=== PATIENT | female | born 1945 | race Caucasian/White ===

== ENCOUNTER → 2016-08-03 | Outpatient (CLI) | payer OTHER, BC | LOC: FIMAGING 07:41 | PROVIDERS: ATTEND Internal Medicine | DX: Z12.31 Encounter for screening mammogram for malignant neoplasm of breast (principal); Z85.3 Personal history of malignant neoplasm of breast; Z90.12 Acquired absence of left breast and nipple | CPT/HCPCS: G0202-52 ==

== ENCOUNTER 2016-08-07 12:44 | Inpatient (IN) | payer OTHER, BC ==
[2016-08-07] MEDS ORDERED: NS 1,000 ML IV ONE (13:15)
[2016-08-07] MEDS ORDERED: ONDANSETRON 4 MG/2 ML VIAL IVP ONE (13:15)
[2016-08-07] MEDS ORDERED: fentaNYL 100 MCG/2 ML INJ IVP ONE (13:15)
--- NOTE | 2016-08-07 13:18 | EDPHY ---
H & P Time Seen by Provider: 08/07/16 13:02 HPI/ROS: CHIEF COMPLAINT: Abdominal pain nausea and vomiting HISTORY OF PRESENT ILLNESS: Patient is had several previous surgeries including peritonitis in 1969 and hernia surgery in 2001. She presents today with nausea and vomiting and abdominal pain for the past 3 days. Mostly upper abdominal pain which is worse with trying to eat or drink anything. No hematemesis or coffee-ground emesis. No diarrhea. Minimal stool in feels constipated. Symptoms are severe but not associated with fever or chills. REVIEW OF SYSTEMS: Eye: no change in vision ENT: no sore throat Cardiac: no chest pain or syncope Pulmonary: no cough or SOB Abdomen: HPI Musculoskeletal: Sacral pain after sitting down hard last week on her but when she tripped over her legs. Skin: no rash Neuro: no headache Constitutional: no fever : no urinary symptoms A comprehensive 10 point review of systems is otherwise negative aside from elements mentioned in the history of present illness. PAST MEDICAL HISTORY: Peritonitis with exploratory laparotomy in 1969, hernia surgery 2001, breast cancer on the left side, diabetes Social history: , former smoker General Appearance: Alert and conversant, cooperative. Eyes: No scleral icterus. ENT, Mouth: Dry mucous membranes. Respiratory: Normal respiratory effort, breath sounds equal, lungs are clear to auscultation. Cardiovascular: Regular rate and rhythm. Gastrointestinal: Right upper quadrant abdominal tenderness. Bowel sounds present. Neurological: Alert and oriented x3. Normally conversant. Face symmetric, normal movement and sensation in all extremities. Skin: Warm and dry, no rashes. Musculoskeletal: No peripheral edema and no joint swelling. Psychiatric: Not agitated. Emergency Department course/MDM: Concern for bowel obstruction given vomiting and multiple previous abdominal surgeries. There is also a 3-year-old a 6-year-old with she when out to lunch with on Sunday and they had gastrointestinal symptoms. She has tenderness over her right upper quadrant does not know if she has had a cholecystectomy in the past with her previous surgeries. CT without IV contrast as she has an allergy, fentanyl 100 mcg IV and Zofran 4 mg IV, normal saline 1 L for dehydration and vomiting. Gallbladder ultrasound. 1403: Ultrasound common bile duct 10 mm otherwise normal, [place]. 1419: CT shows abdominal wall hernia with bowel obstruction, [place] . Discussed with Db, requests an NG-tube admission to surgical service. Will see in the emergency department. Smoking Status: Former smoker Constitutional: Initial Vital Signs Temperature (C) 37.1 C 08/07/16 12:45 Heart Rate 110 H 08/07/16 12:45 Respiratory Rate 18 08/07/16 12:45 Blood Pressure 113/90 H 08/07/16 12:45 O2 Sat (%) 95 08/07/16 12:45 O2 Delivery Mode Room Air O2 (L/minute) 2 Allergies/Adverse Reactions: Iodine and Iodide Containing Produc Allergy (Verified 08/07/16 14:59) IV CONTRAST Allergy (Uncoded 06/10/12 17:02) Other-Enter Comments Home Medications: Medication Instructions Recorded Brimonidine/Timolol [Combigan (*)] 1 drop EACHEYE BID 08/07/16 Brinzolamide [Azopt] 1 drop EACHEYE BID 08/07/16 Dicloxacillin Sodium [Dynapen 500 500 mg PO BID 08/07/16 MG (*)] Gabapentin [Neurontin 300 MG (*)] 900 mg PO TID 08/07/16 Herbals/Supplements -Info Only 1 ea PO DAILY 08/07/16 Letrozole [Femara 2.5 mg (*)] 2.5 mg PO DAILY 08/07/16 Montelukast Sodium [Singulair 10 10 mg PO DAILY@18 08/07/16 mg (*)] Simvastatin [Zocor] 40 mg PO HS 08/07/16 metFORMIN HCL [Metformin HCl] 1,000 mg PO BID 08/07/16 Medical Decision Making - Diagnostics Imaging Results: Imaging Impressions Abdomen/Pelvis CT 08/07/16 13:15 Impression: 1. High-grade small bowel obstruction secondary to left lower quadrant anterior abdominal wall hernia adjacent to previous mesh repair with small bowel loops extending through the hernia defect and inflammatory changes in the surrounding subcutaneous and anterior mesenteric fat. Small bowel Transition point is in the abdominal wall hernia. No pneumoperitoneum or drainable abscess. 2. Second infraumbilical abdominal wall hernia with small bowel also extending through this region. 3. Limited due to lack of intravenous and oral contrast. 4. Recommend surgical consult. Attention: This CT examination is specifically designed to evaluate patients who are clinically suspected of having acute obstructive uropathy. This examination does not use radiographic contrast, and as such, provides only a limited evaluation of the abdomen, pelvis and retroperitoneum. If there is further clinical suspicion for pathological conditions other than obstructive uropathy, a complete CT evaluation of the abdomen and pelvis utilizing intravenous, oral, and rectal contrast should be considered. Findings and recommendations discussed with Emergency Department physician, Davy Arana, at 1420 hours, 08/07/2016. Final report concurs with initial preliminary interpretation. Findings also discussed with Dr. Raffaele Ace at 1500 hours. Abdomen Ultrasound 08/07/16 13:16 Impression: 1. Prior cholecystectomy. 2. Common bile duct 10 mm which may be postsurgical. Please correlate with bilirubin. 3. No hepatomegaly or ascites. 4. No right hydronephrosis. 5. No evidence of aortic aneurysm. Findings and recommendations discussed with Emergency Department physician, Davy Arana at 1407 hours 08/07/2016. Final report concurs with initial preliminary interpretation. Differential Diagnosis: Differential considered including but not limited to bowel obstruction, cholecystitis, intestinal perforation, viral gastroenteritis Consult/Admit Bed Type: [place] [id number] - Data Points Laboratory Results: Laboratory Results 08/07/16 13:07 08/07/16 13:07 08/07/16 08/07/16 13:07 13:07 WBC 14.35 10^3/uL H 10^3/uL (3.80-9.50) RBC 5.22 10^6/uL 10^6/uL (4.18-5.33) Hgb 15.8 g/dL g/dL (12.6-16.3) Hct 46.5 % % (38.0-47.0) MCV 89.1 fL fL (81.5-99.8) MCH 30.3 pg pg (27.9-34.1) MCHC 34.0 g/dL g/dL (32.4-36.7) RDW 13.7 % % (11.5-15.2) Plt Count 428 10^3/uL H 10^3/uL (150-400) MPV 8.7 fL fL (8.7-11.7) Neut % (Auto) 76.5 % H % (39.3-74.2) Lymph % (Auto) 13.7 % L % (15.0-45.0) [place] % (Auto) 8.4 % % (4.5-13.0) Eos % (Auto) 0.6 % % (0.6-7.6) Baso % (Auto) 0.3 % % (0.3-1.7) Nucleat RBC Rel Count 0.0 % % (0.0-0.2) Absolute Neuts (auto) 10.98 10^3/uL H 10^3/uL (1.70-6.50) Absolute Lymphs (auto) 1.97 10^3/uL 10^3/uL (1.00-3.00) Absolute Monos (auto) 1.20 10^3/uL H 10^3/uL (0.30-0.80) Absolute Eos (auto) 0.09 10^3/uL 10^3/uL (0.03-0.40) Absolute Basos (auto) 0.04 10^3/uL 10^3/uL (0.02-0.10) Absolute Nucleated RBC 0.00 10^3/uL 10^3/uL (0-0.01) Immature Gran % 0.5 % % (0.0-1.1) Immature Gran # 0.07 10^3/uL 10^3/uL (0.00-0.10) Sodium 135 mEq/L mEq/L (134-144) Potassium 4.9 mEq/L mEq/L (3.5-5.2) Chloride 99 mEq/L mEq/L (97-110) Carbon Dioxide 20 mEq/l L mEq/l (22-31) Anion Gap 16 mEq/L mEq/L (8-16) BUN 22 mg/dL mg/dL (7-23) Creatinine 0.9 mg/dL mg/dL (0.6-1.0) Estimated GFR > 60 Glucose 156 mg/dL H mg/dL (70-100) Calcium 10.5 mg/dL H mg/dL (8.5-10.4) Total Bilirubin 1.3 mg/dL mg/dL (0.1-1.4) Conjugated Bilirubin 0.5 mg/dL mg/dL (0.0-0.5) Unconjugated Bilirubin 0.8 mg/dL mg/dL (0.0-1.1) AST 44 IU/L IU/L (14-46) ALT 39 IU/L IU/L (9-52) Alkaline Phosphatase 65 IU/L IU/L (38-126) Total Protein 8.2 g/dL g/dL (6.3-8.2) Albumin 4.7 g/dL g/dL (3.5-5.0) Lipase 69.0 IU/L IU/L (23-300) Medications Given: Discontinued Medications Fentanyl (Sublimaze) 100 mcg IVP EDNOW ONE Stop: 08/07/16 13:16 Last Admin: 08/07/16 13:39 Dose: 100 mcg Sodium Chloride (Ns) 1,000 mls @ 0 mls/hr IV ONCE ONE; Wide Open PRN Reason: Protocol Stop: 08/07/16 13:16 Last Admin: 08/07/16 13:39 Dose: 1,000 mls Ondansetron HCl (Zofran) 4 mg IVP EDNOW ONE Stop: 08/07/16 13:16 Last Admin: 08/07/16 13:36 Dose: 4 mg Departure - Departure Disposition: [facility] Inpatient Acute Clinical Impression: Abdominal wall hernia Bowel obstruction Qualifiers: Intestinal obstruction type: unspecified Qualified Code(s): K56.60 - Unspecified intestinal obstruction Condition: Good
[2016-08-07 13:25] LABS: % IMMATURE GRANULYOCYTES 0.5 % (0.0-1.1); ABSOLUTE IMMATURE GRANULOCYTES 0.07 10^3/uL (0.00-0.10); ADD DIFF? NO; ADD MORPH? NO; ADD SCAN? NO; ATYPICAL LYMPHOCYTE FLAG 0 (0-99); FRAGMENT RBC FLAG 0 (0-99); HEMATOCRIT 46.5 % (38.0-47.0); HEMOGLOBIN 15.8 g/dL (12.6-16.3); LEFT SHIFT FLG 0 (0-99); LIPEMIA HEMOLYSIS FLAG 90 (0-99); MEAN CELL HEMOGLOBIN 30.3 pg (27.9-34.1); MEAN CELL VOLUME 89.1 fL (81.5-99.8); MEAN PLATELET VOLUME 8.7 fL (8.7-11.7); PLATELET CLUMPS FLAG 10 (0-99); PLATELET COUNT 428 10^3/uL (150-400); RED BLOOD CELL COUNT 5.22 10^6/uL (4.18-5.33); RED CELL DISTRIBUTION WIDTH 13.7 % (11.5-15.2)
[2016-08-07 13:40] LABS: ALANINE AMINOTRANSFERASE 39 IU/L (9-52); ALBUMIN 4.7 g/dL (3.5-5.0); ALKALINE PHOSPHATASE 65 IU/L (38-126); ANION GAP 16 mEq/L (8-16); ASPARTATE AMINOTRANSFERASE 44 IU/L (14-46); BILIRUBIN,TOTAL 1.3 mg/dL (0.1-1.4); BILIRUBIN-CONJUGATED 0.5 mg/dL (0.0-0.5); BILIRUBIN-UNCONJUGATED 0.8 mg/dL (0.0-1.1); CALCIUM 10.5 mg/dL (8.5-10.4); CARBON DIOXIDE 20 mEq/l (22-31); CHLORIDE 99 mEq/L (97-110); CREATININE 0.9 mg/dL (0.6-1.0); GLOMERULAR FILTRATION RATE > 60; GLUCOSE 156 mg/dL (70-100); POTASSIUM 4.9 mEq/L (3.5-5.2); SODIUM 135 mEq/L (134-144); TOTAL PROTEIN 8.2 g/dL (6.3-8.2)
--- NOTE | 2016-08-07 15:32 | PDGENHP ---
History and Physical - Chief Complaint Abdominal pain - History of Present Illness 70-year-old woman with a history of breast cancer and previous abdominal hernia surgery in [facility] and remote history of peritonitis with laparotomy in 1969 presents to the hospital with 3 days of intractable vomiting, no flatus and pain in the periumbilical area. CT scan of the abdomen and pelvis demonstrates multiple areas of incarcerated bowel and hernias around the mesh as well as a transition point in the left lower quadrant hernia. History Information - Allergies/Home Medication List Allergies/Adverse Reactions: Iodine and Iodide Containing Produc Allergy (Verified 08/07/16 14:59) IV CONTRAST Allergy (Uncoded 06/10/12 17:02) Other-Enter Comments Home Medications: Asopt 08/07/16 [Last Taken Unknown] Brimonidine/Timolol [Combigan (*)] 10 ml OP 08/07/16 [Last Taken Unknown] Dicloxacillin Sodium [Dynapen 500 MG (*)] 500 mg PO 08/07/16 [Last Taken Unknown ] GABAPENTIN 400 mg PO 08/07/16 [Last Taken Unknown] Letrozole [Femara 2.5 mg (*)] 2.5 mg PO DAILY 08/07/16 [Last Taken Unknown] Metformin HCl [Metformin 1000 mg] 1,000 mg PO 08/07/16 [Last Taken Unknown] Montelukast Sodium [Singulair 4 mg (*)] 4 mg PO 08/07/16 [Last Taken Unknown] SIMVASTATIN 10 mg PO 08/07/16 [Last Taken Unknown] I have personally reviewed and updated: family history, medical history, social history, surgical history - Past Medical History cancer (Breast), diabetes type 2, hyperlipidemia - Surgical History Reports: hernia repair - Family History Positive for: non-pertinent - Social History Smoking Status: Never smoked Review of Systems ROS: 10pt was reviewed & negative except for what was stated in HPI & below Cardiac: Reports: no symptoms Respiratory: Reports: no symptoms Gastrointestinal: Reports: vomitting, abdominal pain, nausea Physical Exam Temp Pulse Resp BP Pulse Ox 37.1 C 110 H 18 113/90 H 96 08/07/16 12:45 08/07/16 12:45 08/07/16 12:45 08/07/16 12:45 08/07/16 13:50 Constitutional: no apparent distress, appears nourished Eyes: anicteric sclera, EOMI Cardiovascular: regular rate and rhythym Peripheral Pulses: 2+: femoral (R), femoral (L), dorsalis-pedis (R), dorsalis- pedis (L) Respiratory: no respiratory distress, clear to auscultation Gastrointestinal: other (Palpable hernias of the right left of midline as well as superiorly nontender), No hepatosplenomegally Skin: warm Musculoskeletal: full muscle strength, normal joint ROM Neurologic: AAOx3, sensation intact bilaterally Psychiatric: interacting appropriately Lymph, Heme, Immunologic: no cervical LAD, no supraclavicular LAD Lab Data & Imaging Review 08/07/16 13:07 08/07/16 13:07 WBC 14.35 10^3/uL (3.80-9.50) H 08/07/16 13:07 RBC 5.22 10^6/uL (4.18-5.33) 08/07/16 13:07 Hgb 15.8 g/dL (12.6-16.3) 08/07/16 13:07 Hct 46.5 % (38.0-47.0) 08/07/16 13:07 MCV 89.1 fL (81.5-99.8) 08/07/16 13:07 MCH 30.3 pg (27.9-34.1) 08/07/16 13:07 MCHC 34.0 g/dL (32.4-36.7) 08/07/16 13:07 RDW 13.7 % (11.5-15.2) 08/07/16 13:07 Plt Count 428 10^3/uL (150-400) H 08/07/16 13:07 MPV 8.7 fL (8.7-11.7) 08/07/16 13:07 Neut % (Auto) 76.5 % (39.3-74.2) H 08/07/16 13:07 Lymph % (Auto) 13.7 % (15.0-45.0) L 08/07/16 13:07 [place] % (Auto) 8.4 % (4.5-13.0) 08/07/16 13:07 Eos % (Auto) 0.6 % (0.6-7.6) 08/07/16 13:07 Baso % (Auto) 0.3 % (0.3-1.7) 08/07/16 13:07 Nucleat RBC Rel Count 0.0 % (0.0-0.2) 08/07/16 13:07 Absolute Neuts (auto) 10.98 10^3/uL (1.70-6.50) H 08/07/16 13:07 Absolute Lymphs (auto) 1.97 10^3/uL (1.00-3.00) 08/07/16 13:07 Absolute Monos (auto) 1.20 10^3/uL (0.30-0.80) H 08/07/16 13:07 Absolute Eos (auto) 0.09 10^3/uL (0.03-0.40) 08/07/16 13:07 Absolute Basos (auto) 0.04 10^3/uL (0.02-0.10) 08/07/16 13:07 Absolute Nucleated RBC 0.00 10^3/uL (0-0.01) 08/07/16 13:07 Immature Gran % 0.5 % (0.0-1.1) 08/07/16 13:07 Immature Gran # 0.07 10^3/uL (0.00-0.10) 08/07/16 13:07 Sodium 135 mEq/L (134-144) 08/07/16 13:07 Potassium 4.9 mEq/L (3.5-5.2) 08/07/16 13:07 Chloride 99 mEq/L (97-110) 08/07/16 13:07 Carbon Dioxide 20 mEq/l (22-31) L 08/07/16 13:07 Anion Gap 16 mEq/L (8-16) 08/07/16 13:07 BUN 22 mg/dL (7-23) 08/07/16 13:07 Creatinine 0.9 mg/dL (0.6-1.0) 08/07/16 13:07 Estimated GFR > 60 08/07/16 13:07 Glucose 156 mg/dL (70-100) H 08/07/16 13:07 Calcium 10.5 mg/dL (8.5-10.4) H 08/07/16 13:07 Total Bilirubin 1.3 mg/dL (0.1-1.4) 08/07/16 13:07 Conjugated Bilirubin 0.5 mg/dL (0.0-0.5) 08/07/16 13:07 Unconjugated Bilirubin 0.8 mg/dL (0.0-1.1) 08/07/16 13:07 AST 44 IU/L (14-46) 08/07/16 13:07 ALT 39 IU/L (9-52) 08/07/16 13:07 Alkaline Phosphatase 65 IU/L (38-126) 08/07/16 13:07 Total Protein 8.2 g/dL (6.3-8.2) 08/07/16 13:07 Albumin 4.7 g/dL (3.5-5.0) 08/07/16 13:07 Lipase 69.0 IU/L (23-300) 08/07/16 13:07 Imaging Review: Imaging Impressions Abdomen/Pelvis CT 08/07/16 13:15 Impression: 1. High-grade small bowel obstruction secondary to left lower quadrant anterior abdominal wall hernia adjacent to previous mesh repair with small bowel loops extending through the hernia defect and inflammatory changes in the surrounding subcutaneous and anterior mesenteric fat. No pneumoperitoneum or drainable abscess. 2. Second infraumbilical abdominal wall hernia with small bowel also extending through this region. 3. Limited due to lack of intravenous and oral contrast. 4. Recommend surgical consult. Attention: This CT examination is specifically designed to evaluate patients who are clinically suspected of having acute obstructive uropathy. This examination does not use radiographic contrast, and as such, provides only a limited evaluation of the abdomen, pelvis and retroperitoneum. If there is further clinical suspicion for pathological conditions other than obstructive uropathy, a complete CT evaluation of the abdomen and pelvis utilizing intravenous, oral, and rectal contrast should be considered. Findings and recommendations discussed with Emergency Department physician, Davy Arana, at 1420 hours, 08/07/2016. Final report concurs with initial preliminary interpretation. Abdomen Ultrasound 08/07/16 13:16 Impression: 1. Prior cholecystectomy. 2. Common bile duct 10 mm which may be postsurgical. Please correlate with bilirubin. 3. No hepatomegaly or ascites. 4. No right hydronephrosis. 5. No evidence of aortic aneurysm. Findings and recommendations discussed with Emergency Department physician, Davy Arana at 1407 hours 08/07/2016. Final report concurs with initial preliminary interpretation. Assessment & Plan Assessment: Abdominal wall hernia (Acute) Bowel obstruction (Acute) Hyperlipidemia Type 2 diabetes Chronic pain Breast cancer remote Plan: NG tube decompression. Reassessment after fentanyl has worn off. NPO IV fluids Possible OR for laparotomy mesh removal and small-bowel obstruction relief. Given her previous multiple surgeries non operative care would be more appropriate. If her condition deteriorates low threshold for intervention.
[2016-08-07] MEDS ORDERED: ONDANSETRON 4 MG/2 ML VIAL IVP PRN (15:35)
[2016-08-07] MEDS: LR 1,000 ML IV SCH (16:28)
[2016-08-07] MEDS: GABAPENTIN 300 MG CAP PO SCH (21:46)
[2016-08-07] MEDS: DICLOXACILLIN NA 500 MG CAP PO SCH (22:35)
[2016-08-07] MEDS: ATORVASTATIN CALCIUM 20 MG TAB PO SCH (22:35)
[2016-08-07] MEDS: Brinzolamide 1% 10 ml OPHT.BTL EACHEYE SCH (22:35)
[2016-08-07] MEDS: BRIMONIDINE/TIMOLOL 5 ML OPHT.BTL EACHEYE SCH (22:36)
[2016-08-08 04:55] LABS: % IMMATURE GRANULYOCYTES 0.3 % (0.0-1.1); ABSOLUTE IMMATURE GRANULOCYTES 0.02 10^3/uL (0.00-0.10); ADD DIFF? NO; ADD MORPH? NO; ADD SCAN? NO; ATYPICAL LYMPHOCYTE FLAG 0 (0-99); FRAGMENT RBC FLAG 0 (0-99); HEMATOCRIT 42.8 % (38.0-47.0); HEMOGLOBIN 13.9 g/dL (12.6-16.3); LEFT SHIFT FLG 70 (0-99); LIPEMIA HEMOLYSIS FLAG 80 (0-99); MEAN CELL HEMOGLOBIN 29.6 pg (27.9-34.1); MEAN CELL HEMOGLOBIN CONCENTR. 32.5 g/dL (32.4-36.7); MEAN CELL VOLUME 91.3 fL (81.5-99.8); MEAN PLATELET VOLUME 8.9 fL (8.7-11.7); PLATELET CLUMPS FLAG 20 (0-99); PLATELET COUNT 350 10^3/uL (150-400); RED BLOOD CELL COUNT 4.69 10^6/uL (4.18-5.33); RED CELL DISTRIBUTION WIDTH 13.5 % (11.5-15.2)
[2016-08-08 05:11] LABS: ANION GAP 11 mEq/L (8-16); CALCIUM 9.7 mg/dL (8.5-10.4); CARBON DIOXIDE 24 mEq/l (22-31); CHLORIDE 102 mEq/L (97-110); GLOMERULAR FILTRATION RATE 55; GLUCOSE 176 mg/dL (70-100); POTASSIUM 4.1 mEq/L (3.5-5.2); SODIUM 137 mEq/L (134-144)
[2016-08-08] MEDS ORDERED: BRIMONIDINE/TIMOLOL 5 ML OPHT.BTL EACHEYE SCH (09:00)
[2016-08-08] MEDS ORDERED: DICLOXACILLIN NA 500 MG CAP PO SCH (09:00)
[2016-08-08] MEDS ORDERED: metFORMIN HCL 500 MG TAB PO SCH (09:00)
[2016-08-08] MEDS: LR 1,000 ML IV SCH ×2 (09:52→17:13)
[2016-08-08] MEDS: GABAPENTIN 300 MG CAP PO SCH ×3 (09:52→20:28)
[2016-08-08] MEDS: LETROZOLE 2.5 MG TAB PO SCH (09:53)
[2016-08-08] MEDS: DICLOXACILLIN NA 500 MG CAP PO SCH ×2 (09:53→20:29)
[2016-08-08] MEDS: metFORMIN HCL 500 MG TAB PO SCH ×2 (10:01→17:12)
[2016-08-08] MEDS: BRIMONIDINE/TIMOLOL 5 ML OPHT.BTL EACHEYE SCH ×2 (10:05→20:29)
[2016-08-08] MEDS: Brinzolamide 1% 10 ml OPHT.BTL EACHEYE SCH ×2 (10:07→20:29)
--- NOTE | 2016-08-08 16:24 | SOAPPROG ---
SOAP Progress Note Assessment/Plan: Assessment/Plan: Keith Hou is a 70 yo woman presenting with sbo due to ventral hernia. Prior repair >10 yrs ago in [facility] CT shows mesh pulled away from the fascia in several places with obstruction in llq RRR CTA Abd soft NT ND hernia contents reducible 1500 out from NGT Continue NGT to suction IVF Bowel rest Ambulate Reassess in 24 hr to determine if surgery is necessary or non operative management will suffice 08/08/16 16:19 Objective: Vital Signs Temp Pulse Resp BP Pulse Ox 37.6 C 75 16 114/70 91 L 08/08/16 07:21 08/08/16 07:21 08/08/16 07:21 08/08/16 07:21 08/08/16 07:21 Laboratory Results 08/08/16 04:27 08/08/16 04:27 08/07/16 08/08/16 08/09/16 05:59 05:59 05:59 Intake Total 2511 109 Output Total 1550 Balance 961 109 ICD10 Worksheet Patient Problems: Problems Problem Status Onset Abdominal wall hernia Acute Bowel obstruction Acute
[2016-08-08] MEDS: MONTELUKAST SODIUM 10 MG TAB PO SCH (17:13)
[2016-08-08] MEDS: CEPACOL LOZENGE PO PRN (17:51)
[2016-08-08] MEDS: ATORVASTATIN CALCIUM 20 MG TAB PO SCH (20:29)
[2016-08-08] MEDS ORDERED: NON-FORMULARY NEW DRUG (Simvastatin [Zocor] 40 MG) PO SCH (21:00)
[2016-08-09] MEDS: CEPACOL LOZENGE PO PRN ×2 (05:30→09:00)
[2016-08-09] MEDS: GABAPENTIN 300 MG CAP PO SCH ×3 (09:01→21:05)
[2016-08-09] MEDS: DICLOXACILLIN NA 500 MG CAP PO SCH ×2 (09:01→21:05)
[2016-08-09] MEDS: LETROZOLE 2.5 MG TAB PO SCH (09:01)
[2016-08-09] MEDS: Brinzolamide 1% 10 ml OPHT.BTL EACHEYE SCH ×2 (09:02→21:05)
[2016-08-09] MEDS: BRIMONIDINE/TIMOLOL 5 ML OPHT.BTL EACHEYE SCH ×2 (09:04→21:05)
--- NOTE | 2016-08-09 09:30 | SOAPPROG ---
SOAP Progress Note Assessment/Plan: Assessment: 70yo woman with SBO secondary to ventral hernia. Patient with NG tube in place- reports discomfort from tube. Reports having a BM this morning and passing gas. NG tube drainage 2550/24hrs. BP 140/92, HR 80s, afeb, 97% on 2L, No new labs today. A&O, RRR, teary this morning, abd soft, nontender, not distended. Plan: d/c NG tube today (removed without difficulty at bedside), if patient tolerates without tube home soon. Plan: 08/09/16 09:25 Objective: Vital Signs Temp Pulse Resp BP Pulse Ox 37.1 C 88 18 142/92 H 97 08/09/16 07:41 08/09/16 08:32 08/09/16 07:41 08/09/16 08:32 08/09/16 08:32 Laboratory Results 08/08/16 04:27 08/08/16 04:27 08/08/16 08/09/16 08/10/16 05:59 05:59 05:59 Intake Total 0641 5509 Output Total 6290 9100 Balance 961 -741 ICD10 Worksheet Patient Problems: Problems Problem Status Onset Abdominal wall hernia Acute Bowel obstruction Acute
[2016-08-09] MEDS: metFORMIN HCL 500 MG TAB PO SCH ×2 (10:04→17:48)
[2016-08-09 16:21] VITALS: RESP 16
[2016-08-09] MEDS: MONTELUKAST SODIUM 10 MG TAB PO SCH (17:48)
[2016-08-09] MEDS: ATORVASTATIN CALCIUM 20 MG TAB PO SCH (21:05)
[2016-08-10 08:06] VITALS: BP 111/87; PULSE 72; TEMP 98.3; O2SAT 97
[2016-08-10] MEDS: LETROZOLE 2.5 MG TAB PO SCH (09:00)
[2016-08-10] MEDS: DICLOXACILLIN NA 500 MG CAP PO SCH (09:01)
[2016-08-10] MEDS: GABAPENTIN 300 MG CAP PO SCH (09:02)
[2016-08-10] MEDS: metFORMIN HCL 500 MG TAB PO SCH (09:03)
[2016-08-10] MEDS: BRIMONIDINE/TIMOLOL 5 ML OPHT.BTL EACHEYE SCH (09:04)
[2016-08-10] MEDS: Brinzolamide 1% 10 ml OPHT.BTL EACHEYE SCH (09:04)
[2016-08-10] MEDS: CEPACOL LOZENGE PO PRN (09:10)
== END 2016-08-10 10:50 | disposition home or self-care (01) | DRG 395 ==
LOC: F3E 15:57
PROVIDERS: ADMIT Surgery; ATTEND Surgery
PROC: 0D9670Z Drainage of Stomach with Drainage Device, Via Natural or Artificial Opening (ICD-10-PCS; principal; 2016-08-07)
DX: K43.6 Other and unspecified ventral hernia with obstruction, without gangrene (principal)
CPT/HCPCS: 96374; J2405; J3010

== ENCOUNTER → 2016-10-13 | Outpatient (CLI) | payer OTHER, BC | LOC: FIMAGING 13:25 | PROVIDERS: ATTEND Physician Assistant Medical | DX: M25.552 Pain in left hip (principal) ==

== ENCOUNTER 2016-11-15 08:04 | Inpatient (IN) | payer OTHER, BC ==
[2016-11-15] MEDS ORDERED: LIDOCAINE 1% 2 ML INJ ID PRN (09:58)
[2016-11-15] MEDS ORDERED: LR 1,000 ML IV ONE (09:58)
[2016-11-15] MEDS ORDERED: LIDOCAINE 1% 300 MG/30 ML SDV ONE (10:14)
[2016-11-15] MEDS ORDERED: BUPIVACAINE 0.5% 30 ML SDV ONE (10:15)
--- NOTE | 2016-11-15 10:53 | PDANEPAE ---
ANE History of Present Illness recurrent ventral hernia ANE Past Medical History - Cardiovascular History Hx Hypertension: Yes Hx Arrhythmias: No Hx Chest Pain: No Hx Coronary Artery / Peripheral Vascular Disease: No Hx CHF / Valvular Disease: No Hx Palpitations: No Cardiovascular History Comment: HYPERLIPIDEMIA - Pulmonary History Hx COPD: No Hx Asthma/Reactive Airway Disease: Yes Hx Recent Upper Respiratory Infection: No Hx Oxygen in Use at Home: Yes O2 in Use at Home (L/minute): NOC O2 @ 2L Hx Sleep Apnea: Yes Sleep Apnea Screening Result - Last Documented: Positive Pulmonary History Comment: ALLERGIES. POS DAVEY W/NOC O2 - NO CPAP - Neurologic History Hx Cerebrovascular Accident: No Hx Seizures: No Hx Dementia: No - Endocrine History Hx Diabetes: Yes Endocrine History Comment: DM II - Renal History Hx Renal Disorders: No - Liver History Hx Hepatic Disorders: No - Neurological & Psychiatric Hx Hx Neurological and Psychiatric Disorders: Yes Neurological / Psychiatric History Comment: possible dementia - Cancer History Hx Cancer: Yes Cancer History Comment: BREAST CA - Congenital Disorder History Hx Congenital Disorders: No - GI History Hx Gastrointestinal Disorders: Yes Gastrointestinal History Comment: RECURRENT HERNIA - Other Health History Other Health History: NEG - Chronic Pain History Chronic Pain: Yes (HIP PAIN) - Surgical History Prior Surgeries: ABD CYST W/PERITONITIS. HERNIA 2001. BREAST MASTECTOMY L 2001. HERNIA ABD. PORT PLACEMENT FOR CHEMO. ANGIOGRAM TO REMOVE PIECE FROM PORT WENT TO CORONARY ARTERY. CATARACTS. GLAUCOMA SURGERY. OMER & APPENDECTOMY ANE Review of Systems Review of Systems: - Exercise capacity Exercise capacity: >=4 METS METS (RN): 4 METS ANE Patient History - Allergies Allergies/Adverse Reactions: Iodine and Iodide Containing Produc Allergy (Verified 08/07/16 14:59) IV CONTRAST Allergy (Uncoded 06/10/12 17:02) Other-Enter Comments - Home Medications Home Medications: Brimonidine/Timolol [Combigan (*)] 1 drop EACHEYE BID 08/07/16 [Last Taken 11/14] Brinzolamide [Azopt] 1 drop EACHEYE BID 08/07/16 [Last Taken 11/14/16] Dicloxacillin Sodium [Dynapen 500 MG (*)] 500 mg PO BID 08/07/16 [Last Taken 06:00] Gabapentin [Neurontin 300 MG (*)] 900 mg PO TID 08/07/16 [Last Taken 11/08/16] Montelukast Sodium [Singulair 10 mg (*)] 10 mg PO DAILY@18 08/07/16 [Last Taken 11/13/16] Simvastatin [Zocor] 40 mg PO HS 08/07/16 [Last Taken 11/14/16 18:00] metFORMIN HCL [Metformin HCl] 1,000 mg PO BID 08/07/16 [Last Taken 11/13/16] Meloxicam 15 mg PO HS 11/07/16 [Last Taken 11/08/16] Multivitamins [Multivitamin (*)] 1 each PO DAILY 11/07/16 [Last Taken 11/08/16] - NPO status NPO Status: no food or drink >8 hours NPO Since - Liquids (Date): 11/14/16 NPO Since - Liquids (Time): 16:30 NPO Since - Solids (Date): 11/14/16 NPO Since - Solids (Time): 16:30 - Anes Hx Anes Hx: no prior problems - Smoking Hx Smoking Status: Never smoked - Alcohol Use Alcohol Use: Rarely - Family Anes Hx Family Hx Anesthesia Complications: NEG ANE Labs/Vital Signs - Vital Signs Blood Pressure: 124/67 Heart Rate: 72 Respiratory Rate: 21 O2 Sat (%): 90 Height: 157.48 cm Weight: 84.822 kg ANE Physical Exam - Airway Mallampati Score: Class 2 Mouth exam: normal dental/mouth exam - Pulmonary Pulmonary: no respiratory distress - Cardiovascular Cardiovascular: regular rate and rhythym - ASA Status ASA Status: III ANE Anesthesia Plan Anesthesia Plan: general endotracheal anesthesia
[2016-11-15] MEDS ORDERED: ceFAZolin 2 GM/DEXTROSE 100 ML IV ONE (10:55)
--- NOTE | 2016-11-15 10:55 | PDHPUP ---
History & Physical Update H&P update statement: This history and physical update is based on an assessment of the patient which was completed after admission or registration (within 24 hours), but prior to the surgery/procedure. H&P update: no change in patient's condition since H&P completed H&P changes: Pt came in with severe anxiety regarding the procedure. initial oxygen sats 78-80 on room air now 90-94 on room air. pt wishes to proceed with surgery. all questions addressed
[2016-11-15] MEDS ORDERED: MIDAZOLAM 2 MG/2 ML VIAL ONE (10:57)
[2016-11-15] MEDS ORDERED: ROCURONIUM 100 MG/10 ML VIAL ONE (11:00)
[2016-11-15] MEDS ORDERED: PROPOFOL 200 MG/20 ML VIAL ONE (11:00)
[2016-11-15] MEDS ORDERED: LIDOCAINE 2% 5 ML SDV ONE (11:00)
[2016-11-15] MEDS ORDERED: fentaNYL 100 MCG/2 ML INJ ONE ×2 (11:00→13:53)
[2016-11-15] MEDS ORDERED: DEXAMETHASONE 4 MG/ML VIAL ONE (11:16)
[2016-11-15] MEDS ORDERED: HYDROmorphONE/DILAUDID 2 MG/ML INJ ONE (11:43)
[2016-11-15] MEDS ORDERED: MIDAZOLAM 2 MG/2 ML VIAL IVP ONE (12:03)
[2016-11-15] MEDS ORDERED: ONDANSETRON 4 MG/2 ML VIAL ONE (13:01)
[2016-11-15] MEDS ORDERED: KETOROLAC 30 MG/1 ML SDV ONE (13:01)
[2016-11-15] MEDS ORDERED: HYDROCODONE/APAP 5/325 TAB PO PRN (13:02)
[2016-11-15] MEDS ORDERED: HYDROmorphONE/DILAUDID 1 MG/ML INJ IVP PRN ×2 (13:02→13:30)
[2016-11-15] MEDS ORDERED: ONDANSETRON 4 MG/2 ML VIAL IVP PRN ×2 (13:02→13:28)
[2016-11-15] MEDS ORDERED: OXYCODONE/APAP 5/325 TAB PO PRN (13:02)
[2016-11-15] MEDS ORDERED: ACETAMINOPHEN 500 MG TAB PO PRN (13:02)
[2016-11-15] MEDS ORDERED: NALOXONE HCL 0.4 MG/ML INJ IVP PRN (13:02)
[2016-11-15] MEDS ORDERED: ALBUTEROL 3 ML DEYVIAL IH PRN (13:02)
[2016-11-15] MEDS ORDERED: SUGAMMADEX SODIUM 200 MG/2 ML VIAL IVP ONE (13:04)
--- NOTE | 2016-11-15 13:26 | POSTOPPROG ---
Post Op Note Date of Operation: 11/15/16 Surgeon: Rafafele Ace Caterers Helper: none Anesthesiologist: Esteban Anesthesia: GET(General Endotracheal) Pre-op Diagnosis: Recurrent ventral incisional hernia Post-op Diagnosis: same Procedure: Ventral hernia repair, posterior component separation, retrorectus mesh Inf/Abcess present in the surg proc area at time of surgery?: No Depth: Organ Space EBL: 50-100 Complications: none Specimen(s): explanted mesh
[2016-11-15] MEDS: fentaNYL 100 MCG/2 ML INJ IVP PRN ×2 (13:55→14:16)
[2016-11-15] MEDS ORDERED: HYDROmorphONE/DILAUDID 1 MG/ML INJ ONE (14:18)
[2016-11-15] MEDS: GABAPENTIN 300 MG CAP PO SCH ×2 (15:53→20:40)
--- NOTE | 2016-11-15 16:06 | POSTANESTH ---
Post Anesthetic Evaluation Cardiovascular Status: Normal, Stable Respiratory Status: Normal, Stable Level of Consciousness/Mental Status: Can Participate in Eval Pain Control: Adequate, Prn Tx Ordered Nausea/Vomiting Control: Adequate, Prn Tx Ordered Complications Possibly Related to Anesthesia: None Noted
[2016-11-15] MEDS: OXYCODONE/APAP 5/325 TAB PO PRN (17:48)
[2016-11-15] MEDS: MONTELUKAST SODIUM 10 MG TAB PO SCH (17:49)
[2016-11-15] MEDS: ATORVASTATIN CALCIUM 20 MG TAB PO SCH (20:40)
[2016-11-15] MEDS: metFORMIN HCL 500 MG TAB PO SCH (20:40)
[2016-11-15] MEDS: DICLOXACILLIN NA 500 MG CAP PO SCH (20:40)
[2016-11-15] MEDS: Meloxicam [Meloxicam] 15 MG PO SCH (20:53)
[2016-11-15] MEDS: Brinzolamide 1% 10 ml OPHT.BTL EACHEYE SCH (21:18)
[2016-11-15] MEDS: BRIMONIDINE/TIMOLOL 5 ML OPHT.BTL EACHEYE SCH (21:18)
[2016-11-16] MEDS: OXYCODONE/APAP 5/325 TAB PO PRN ×4 (05:54→20:34)
[2016-11-16 06:20] LABS: HEMATOCRIT 41.1 % (38.0-47.0); HEMOGLOBIN 12.9 g/dL (12.6-16.3)
[2016-11-16 06:47] LABS: ANION GAP 14 mEq/L (8-16); CALCIUM 9.2 mg/dL (8.5-10.4); CARBON DIOXIDE 21 mEq/l (22-31); CHLORIDE 106 mEq/L (97-110); CREATININE 1.2 mg/dL (0.6-1.0); GLOMERULAR FILTRATION RATE 44; GLUCOSE 150 mg/dL (70-100); POTASSIUM 4.6 mEq/L (3.5-5.2); SODIUM 141 mEq/L (134-144)
[2016-11-16] MEDS: DICLOXACILLIN NA 500 MG CAP PO SCH ×2 (09:19→21:37)
[2016-11-16] MEDS: BRIMONIDINE/TIMOLOL 5 ML OPHT.BTL EACHEYE SCH (09:19)
[2016-11-16] MEDS: Brinzolamide 1% 10 ml OPHT.BTL EACHEYE SCH (09:19)
[2016-11-16] MEDS: MULTIVITAMINS 1 EACH TAB PO SCH (09:20)
[2016-11-16] MEDS: GABAPENTIN 300 MG CAP PO SCH ×3 (09:20→21:37)
[2016-11-16] MEDS: metFORMIN HCL 500 MG TAB PO SCH ×2 (09:20→21:36)
--- NOTE | 2016-11-16 16:40 | ASMTCMCOM ---
CM Note CM Note Notes: Pt here for scheduled surgery, lives in [place] w/, PT/OT to eval Date Signed: 11/16/2016 04:39 PM Electronically Signed By:Tracy Keys RN
--- NOTE | 2016-11-16 16:40 | SOAPPROG ---
[place] Progress Note Assessment/Plan: Assessment/Plan: Keith is doing very well status post ventral hernia repair component separation for recurrent incisional hernia. She is in better spirits today. Pain is controlled with oral analgesia. She is not able to ambulate without assistance of a walker and feels dizzy. Her creatinine was 1.2 this morning and hydration will be required. Regular rate and rhythm Clear to auscultation bilaterally Incision clean dry and intact. Appropriately tender. No distention Left upper extremity in sleeve from previous mastectomy with axillary lymphadenectomy. No current concerns. PT OT ordered. Bolus of IV fluids overnight. Continue current management. Anticipate discharge in 48 hours 11/16/16 16:36 Objective: Vital Signs Temp Pulse Resp BP Pulse Ox 37.3 C 83 20 121/70 H 99 11/16/16 15:08 11/16/16 15:08 11/16/16 15:08 11/16/16 15:08 11/16/16 15:08 Laboratory Results 11/16/16 06:05 11/16/16 06:05 11/15/16 11/16/16 11/17/16 05:59 05:59 05:59 Intake Total 1040 Output Total 150 Balance 890 ICD10 Worksheet Patient Problems: Problems Problem Status Onset Abdominal wall hernia Acute Bowel obstruction Acute
[2016-11-16] MEDS ORDERED: NS 1,000 ML IV SCH (16:45)
[2016-11-16] MEDS: MONTELUKAST SODIUM 10 MG TAB PO SCH (17:39)
--- NOTE | 2016-11-16 21:07 | GOP ---
[f rep st] OPERATIVE REPORT DATE OF OPERATION: 11/15/2016 SURGEON: Raffaele Ace MD PRINTING SPECIALIST: None. ANESTHESIOLOGIST: Shorty Orellana MD PREOPERATIVE DIAGNOSIS: POSTOPERATIVE DIAGNOSIS: PROCEDURE PERFORMED: Open ventral hernia repair, recurrent, incisional, with explantation of mesh an d placement of recto-rectus Symbotex mesh 10 x 15 cm. FINDINGS: SPECIMENS: Explanted mesh for gross only to Pathology. ESTIMATED BLOOD LOSS: Approximately 100 cc. DESCRIPTION OF PROCEDURE: Patient was brought into the operating room. After induction of endotrach eal anesthesia in supine position, her abdomen was prepped with chlorhexidine and draped sterilely. Time-out procedure was performed according to institutional standards. Local anesthetic was infused in skin and subcutaneous tissues of her abdomen. Incision was made in lines of her previous incision , deepened with electrocautery. Sharp dissection was used around the mesh to completely free it from the balled-up position. It was loosely attached to lateral fascia. There were 3 hernias that were n oted around the mesh,; right lateral, left lower lateral, and superior midline. These hernias were a ll reduced and the bridges of fascia that were noted superiorly were then taken down. The mesh was c ompletely expanded. Hemostasis was assured. Lysis of adhesions posteriorly was done to the anterior abdominal wall to free up the bowels and allow reapproximation of the midline fascia. The rectus sh eath was divided in the middle to allow exposure of the retro-rectus space. This was dissected super iorly inferiorly, first on the right and then on the left. After ensuring these areas would come tog ether without difficulty, the anterior fascia was then released from the scar tissue anteriorly circu mferentially to allow reapproximation of the midline anterior fascia. The posterior fascia was then brought to the midline by doing a posterior release and allowing this to finally reapproximate withou t tension. 2-0 PDS was used to reapproximate the posterior midline. The mesh was then placed and ta cked with 3-0 PDS to the superior, lateral, and inferior aspects of the recto-rectus sheath and the m idline was then closed anteriorly using #1 PDS in a running fashion. The space was reapproximat ed using 2-0 Vicryl. Irrigation of the wound was performed before closing this in layers using 3-0 P olysorb and 4-0 Monocryl. Dermabond was applied. The patient was awakened, extubated, and taken to recovery room in stable condition. Needle, instrument, and sponge counts were verified to be correct x2. COMPLICATIONS: None. /[id number]/MODL
[2016-11-16] MEDS: ATORVASTATIN CALCIUM 20 MG TAB PO SCH (21:36)
[2016-11-16] MEDS: Meloxicam [Meloxicam] 15 MG PO SCH (23:39)
[2016-11-17] MEDS: Brinzolamide 1% 10 ml OPHT.BTL EACHEYE SCH ×3 (00:13→19:57)
[2016-11-17] MEDS: BRIMONIDINE/TIMOLOL 5 ML OPHT.BTL EACHEYE SCH ×3 (00:13→19:57)
[2016-11-17] MEDS: HYDROCODONE/APAP 5/325 TAB PO PRN ×3 (03:49→19:49)
[2016-11-17] MEDS: metFORMIN HCL 500 MG TAB PO SCH ×2 (09:36→19:57)
[2016-11-17] MEDS: GABAPENTIN 300 MG CAP PO SCH ×3 (09:36→22:57)
[2016-11-17] MEDS: DICLOXACILLIN NA 500 MG CAP PO SCH ×2 (09:36→19:56)
[2016-11-17] MEDS: MULTIVITAMINS 1 EACH TAB PO SCH (09:53)
--- NOTE | 2016-11-17 10:09 | SOAPPROG ---
SOAP Progress Note Assessment/Plan: Assessment/Plan: Keith is doing very well status post ventral hernia repair component separation for recurrent incisional hernia POD#22. She is in better spirits today. Pain is controlled with oral analgesia. She is not able to ambulate without assistance of a walker and feels dizzy. Her creatinine was 1.2 this morning and hydration will be required. Regular rate and rhythm Clear to auscultation bilaterally Incision clean dry and intact. Appropriately tender. No distention Left upper extremity in sleeve from previous mastectomy with axillary lymphadenectomy. No current concerns. PT OT Continue current management. Anticipate discharge in 24 hours 11/16/16 16:36 11/17/16 10:08 Objective: Vital Signs Temp Pulse Resp BP Pulse Ox 36.9 C 93 16 139/93 H 91 L 11/17/16 08:00 11/17/16 08:00 11/17/16 08:00 11/17/16 08:00 11/17/16 08:00 Laboratory Results 11/16/16 06:05 11/16/16 06:05 11/16/16 11/17/16 11/18/16 05:59 05:59 05:59 Intake Total 1040 1455 Output Total 150 625 Balance 890 830 ICD10 Worksheet Patient Problems: Problems Problem Status Onset Abdominal wall hernia Acute Bowel obstruction Acute
--- NOTE | 2016-11-17 15:51 | ASMTCMCOM ---
CM Note CM Note Notes: Chart reviewed. Patient cleared to dc per PT, OT pending. If needs arise, Patient lives in [place]. CM to follow. Date Signed: 11/17/2016 03:50 PM Electronically Signed By:Lynn Rocha RN
[2016-11-17] MEDS: MONTELUKAST SODIUM 10 MG TAB PO SCH (17:55)
[2016-11-17] MEDS: ATORVASTATIN CALCIUM 20 MG TAB PO SCH (19:57)
[2016-11-17] MEDS: Meloxicam [Meloxicam] 15 MG PO SCH (19:59)
[2016-11-18] MEDS: HYDROCODONE/APAP 5/325 TAB PO PRN ×4 (04:26→21:00)
[2016-11-18] MEDS: GABAPENTIN 300 MG CAP PO SCH ×3 (09:59→21:01)
[2016-11-18] MEDS: DICLOXACILLIN NA 500 MG CAP PO SCH ×2 (10:00→21:01)
[2016-11-18] MEDS: BRIMONIDINE/TIMOLOL 5 ML OPHT.BTL EACHEYE SCH ×2 (10:00→21:05)
[2016-11-18] MEDS: MULTIVITAMINS 1 EACH TAB PO SCH (10:00)
[2016-11-18] MEDS: Brinzolamide 1% 10 ml OPHT.BTL EACHEYE SCH ×2 (10:00→21:05)
[2016-11-18] MEDS: metFORMIN HCL 500 MG TAB PO SCH ×2 (10:00→21:01)
--- NOTE | 2016-11-18 11:15 | SOAPPROG ---
SOAP Progress Note Assessment/Plan: Assessment/Plan: Keith is doing very well status post ventral hernia repair component separation for recurrent incisional hernia POD#3. She is in better spirits today. Pain is controlled with oral analgesia. She is able to ambulate without assistance of a walker but is unsure. PT/OT consults appreciated able to go home without services. Regular rate and rhythm Clear to auscultation bilaterally Incision clean dry and intact. Appropriately tender. No distention Left upper extremity in sleeve from previous mastectomy with axillary lymphadenectomy. Mild hypoxia uses O2 at night Ambulatory sats May need home O2 long cannula versus portable tank D/C this pm or early tomorrow 11/16/16 16:36 11/17/16 10:08 11/18/16 11:12 Objective: Vital Signs Temp Pulse Resp BP Pulse Ox 37.1 C 68 16 109/59 L 97 11/18/16 11:06 11/18/16 11:06 11/18/16 11:06 11/18/16 11:06 11/18/16 11:06 Laboratory Results 11/16/16 06:05 11/16/16 06:05 11/17/16 11/18/16 11/19/16 05:59 05:59 05:59 Intake Total 7394 3775 Output Total 018 726 Balance 830 4519 ICD10 Worksheet Patient Problems: Problems Problem Status Onset Abdominal wall hernia Acute Bowel obstruction Acute
[2016-11-18] MEDS: MONTELUKAST SODIUM 10 MG TAB PO SCH (17:43)
[2016-11-18] MEDS: ATORVASTATIN CALCIUM 20 MG TAB PO SCH (21:01)
[2016-11-18] MEDS: Meloxicam [Meloxicam] 15 MG PO SCH (21:02)
[2016-11-19] MEDS: HYDROCODONE/APAP 5/325 TAB PO PRN (06:43)
[2016-11-19 07:11] VITALS: BP 150/69; PULSE 82; RESP 18; TEMP 98.9
[2016-11-19] MEDS: DICLOXACILLIN NA 500 MG CAP PO SCH (08:46)
[2016-11-19] MEDS: metFORMIN HCL 500 MG TAB PO SCH (08:46)
[2016-11-19] MEDS: GABAPENTIN 300 MG CAP PO SCH (08:46)
[2016-11-19] MEDS: MULTIVITAMINS 1 EACH TAB PO SCH (08:46)
[2016-11-19] MEDS: BRIMONIDINE/TIMOLOL 5 ML OPHT.BTL EACHEYE SCH (08:47)
[2016-11-19] MEDS: Brinzolamide 1% 10 ml OPHT.BTL EACHEYE SCH (08:47)
--- NOTE | 2016-11-19 09:28 | PDDCSUM ---
Discharge Summary Discharge Summary: This is a 70-year-old woman who presented to the hospital for elective repair of recurrent ventral incisional hernia. She was admitted on the day of surgery. Underwent extensive surgery to remove previous mesh and repair longstanding hernia. Postop were the she has done very well she has tolerated a diet pain is well controlled on analgesics and PT OT have cleared her for home without services. Her diabetes has been under fairly good control with levels below 200. She does not check her levels at home per patient and 's her port. She is on home oxygen on a regular basis at night but may require additional oxygen if during the day she remains below 90% saturation. On exam today she is doing well although tearful. Regular rate and rhythm Clear to auscultation Abdomen soft incision clean dry and intact No peripheral edema Impression doing very well plan discharged home to follow up in the office in 1 week. All questions were addressed he is not lift greater than 25 lb she is back to her baseline cardiac status pulmonary kahn she will remain on increased oxygen at home. Portable unit versus longer nasal cannula have been given his options. She and her will call back to see which would be preferable. Abdominal wall hernia (Acute) Bowel obstruction (resolved) Restart home medications listed below add Brewster 5251-2 p. o. q.4-6 hours p.r.n. Brimonidine/Timolol [Combigan (*)] 1 drop EACHEYE BID 08/07/16 [Last Taken 11/14] Brinzolamide [Azopt] 1 drop EACHEYE BID 08/07/16 [Last Taken 11/14/16] Dicloxacillin Sodium [Dynapen 500 MG (*)] 500 mg PO BID 08/07/16 [Last Taken 06:00] Gabapentin [Neurontin 300 MG (*)] 900 mg PO TID 08/07/16 [Last Taken 11/08/16] Montelukast Sodium [Singulair 10 mg (*)] 10 mg PO DAILY@18 08/07/16 [Last Taken 11/13/16] Simvastatin [Zocor] 40 mg PO HS 08/07/16 [Last Taken 11/14/16 18:00] metFORMIN HCL [Metformin HCl] 1,000 mg PO BID 08/07/16 [Last Taken 11/13/16] Meloxicam 15 mg PO HS 11/07/16 [Last Taken 11/08/16] Multivitamins [Multivitamin (*)] 1 each PO DAILY 11/07/16 [Last Taken 11/08/16]
--- NOTE | 2016-11-19 10:29 | ASMTCMCOM ---
CM Note CM Note Notes: Chart reviewed. PT and OT notes suggest HHC. Met with patient and to discuss dc POC. They decline need for HHCS at this time. She currently has home oxygen through [facility], they do not have a portable tank.. I explained that if her needs changed once they got home and changed their minds about HHC, they could call their PCP Dr. Karina Dejesus to arrange for services. CM available if needs change. Date Signed: 11/19/2016 10:28 AM Electronically Signed By:Lynn Rocha RN
[2016-11-19 11:19] VITALS: O2SAT 92
--- NOTE | 2016-11-19 15:01 | ASDISCHSUM ---
Discharge Information Plan Status:Home with No Needs Medically Cleared to Leave: Discharge Date:11/19/2016 12:14 PM CM D/C Disposition:Home, Routine, Self-Care ADT D/C Disposition:Home, Routine, Self-Care Projected Discharge Date:11/19/2016 12:14 PM Transportation at D/C: Discharge Delay Reason: Follow-Up Date:11/19/2016 12:14 PM Discharge Slot: Final Diagnosis: Placement Information Patient Contact Information Contact Name:CHIQUIS Relationship: Address:[address] [place] [address] City:[facility] Phone: State/Zip Code:[place] [address] Email: Financial Information Financial Class: Primary Plan Desc:MEDICARE INPATIENT Primary Plan Number:[id number] Secondary Plan Desc:[facility] Secondary Plan Number:[id number] Assessment Information [facility] CM Progress Note CM Note CM Note Notes: Pt here for scheduled surgery, lives in [place] w/, PT/OT to eval Date Signed: 11/16/2016 04:39 PM Electronically Signed By:Tracy Keys RN [facility] CM Progress Note CM Note CM Note Notes: Chart reviewed. Patient cleared to dc per PT, OT pending. If needs arise, Patient lives in [place]. CM to follow. Date Signed: 11/17/2016 03:50 PM Electronically Signed By:Lynn Rocha RN [facility] CM Progress Note CM Note CM Note Notes: Chart reviewed. PT and OT notes suggest HHC. Met with patient and to discuss dc POC. They decline need for HHCS at this time. She currently has home oxygen through [facility], they do not have a portable tank.. I explained that if her needs changed once they got home and changed their minds about HHC, they could call their PCP Dr. Karina Dejesus to arrange for services. CM available if needs change. Date Signed: 11/19/2016 10:28 AM Electronically Signed By:Lynn Rocha RN Intervention Information Intervention Type:*CAMPOS-Signed Date of Service:11/16/2016 09:33 AM Patient Type:Observation Staff Member:Debby Haq Hours: Discipline: Severity: Comment:
== END 2016-11-19 12:14 | disposition home or self-care (01) | DRG 355 ==
LOC: OBSVTOIN 08:04 → F3E 08:04 → INTOOBSV 08:04 → F3E 14:40
PROVIDERS: ADMIT Surgery; ATTEND Surgery
DX: K43.0 Incisional hernia with obstruction, without gangrene (principal); E11.9 Type 2 diabetes mellitus without complications; J44.9 Chronic obstructive pulmonary disease, unspecified; Z99.81 Dependence on supplemental oxygen; E78.5 Hyperlipidemia, unspecified; I10 Essential (primary) hypertension; E66.09 Other obesity due to excess calories; Z68.34 Body mass index [BMI] 34.0-34.9, adult; Z85.3 Personal history of malignant neoplasm of breast
CPT/HCPCS: 97116-GP; 97161-GP; 97166-GO; 97535-GO; C1781; G8978-GP-CJ; G8979-GP-CI; G8987-GO-CI; G8988-GO-CI; J1100; J1170; J1885; J2250; J2405; J2704; J3010

== ENCOUNTER 2017-05-02 11:01 | Inpatient (IN) | payer OTHER, BC ==
[2017-05-02 11:55] LABS: PLATELET COUNT 327 10^3/uL (150-400)
[2017-05-02] MEDS ORDERED: NS 2,000 ML IV ONE ×2 (13:00→13:17)
--- NOTE | 2017-05-02 13:09 | EDPHY ---
HPI/HX/ROS/PE/MDM Narrative: CHIEF COMPLAINT: Left arm swelling. HISTORY OF PRESENT ILLNESS: This patient is a 71 y/o female with history of breast cancer who presents with left arm swelling and redness. She has chronic lymphedema from breast surgery and lymph removal in 2001. She has had similar symptoms to today in the past with several prior hospitalizations for cellulitis. The patient endorses fevers up to 103 degrees. She denies nausea or vomiting. She has had headaches as well. The patient is generally on 2L home oxygen at night. She denies any history of clotting disorders or DVT/PE. No chills, chest pain, shortness of breath, palpitations, diarrhea, urinary complaints, lightheadedness. REVIEW OF SYSTEMS: Aside from elements discussed in the HPI, a comprehensive 10-point review of systems was reviewed and is negative. PAST MEDICAL HISTORY: History of breast cancer. Diabetes (Metformin). Peritonitis. Hernia repair. Glaucoma. Hand tremors. ? Dementia Medications: Dicloxacillin, metformin, gabapentin, simvastatin, Singulair, ASA 81mg, SOCIAL HISTORY: . at bedside. Retired. VITAL SIGNS: Reviewed by me GENERAL: Well-developed, well-nourished, resting comfortably, complaining of pain in her left upper extremity. HEENT: Atraumatic. Eyes: No icterus, no injection. Mouth: Dry lips, moist mucous membranes. No erythema or lesions. Neck: supple with no adenopathy. LUNGS: Clear to auscultation bilaterally, no wheezes, rhonchi or rales. CARDIAC: Regular rate and rhythm, no rubs, murmurs or gallops. ABDOMEN: Soft, nontender, nondistended, bowel sounds normal. BACK: No CVA tenderness. EXTREMITIES: Left arm: Moderate diffuse lymphedema. Circumferential erythema and warmth from the wrist to the top of the humerus. Some erythema has spread to the axilla as well as possible lymphangitic streaking extending across the chest wall. No trauma. Range of motion is normal throughout. NEURO: Alert and oriented, grossly nonfocal. SKIN: Erythema extends up left arm as described above and across chest wall to the right shoulder. Warm and dry. PSYCHIATRIC: Normal mentation, no agitation. Portions of this note were transcribed by a medical office technology instructor. I personally performed a history, physical exam, medical decision making, and confirmed accuracy of information the transcribed note. ED Course: 71 y/o female with chronic left arm lymphedema and history of frequent cellulitis presents with left arm swelling and erythema. Erythema and warmth extends up the left upper extremity with a probable lymphangitic spread across the anterior chest wall and to her right shoulder. Plan for US LUE to r/o DVT. Plan for chest x-ray, sepsis protocol labs. Plan to administer 2L IV NS. Severe Sepsis/Septic Shock Care Note The patient presents to the ED with cellulitis identified as an acute infection. The patient did have evidence of end-organ dysfunction and met criteria for severe sepsis. This condition was identified by myself at 1400. The patients vital signs are 152/77, 72, 18, 94%, 36.5. The patient has a venous lactic acid performed within 3 hours of the identification of severe sepsis which was found to be 2.8. The patient has blood cultures drawn and received vancomycin IV, per the severe sepsis treatment protocol. The initial lactate was elevated and rechecked within 6 hours of the identification time of severe sepsis and found to be: 2.2. 14:25 Consulted with hospitalist service. Dr. Rodriguez accepts admission for sepsis and LUE cellulitis. 14:[address] Ramirez, radiologist. US left arm negative for DVT. MDM: Differential diagnoses for the patient's symptom complex was considered including but not limited to deep venous thrombus, cellulitis, deep space infection, lymphedema, abscess. - Data Points Imaging Results: Imaging Impressions Chest X-Ray 05/02/17 13:17 Impression: Negative chest.. Extremity Venous Study 05/02/17 13:19 Impression: No evidence of DVT. Findings discussed with Jinny Cao MD 05/02/2017 at 14:43. Laboratory Results: Laboratory Results 05/02/17 10:40 05/02/17 10:40 05/02/17 05/02/17 05/02/17 13:50 13:25 11:40 WBC RBC Hgb Hct MCV MCH MCHC RDW Plt Count MPV Neut % (Auto) Lymph % (Auto) Dewitt % (Auto) Eos % (Auto) Baso % (Auto) Nucleat RBC Rel Count Absolute Neuts (auto) Absolute Lymphs (auto) Absolute Monos (auto) Absolute Eos (auto) Absolute Basos (auto) Absolute Nucleated RBC Immature Gran % Immature Gran # PT 13.3 SEC SEC (12.0-15.0) INR 0.99 (0.83-1.16) APTT 26.8 SEC SEC (23.0-38.0) VBG Lactic Acid 2.8 mmol/L H mmol/L (0.7-2.1) Sodium Potassium Chloride Carbon Dioxide Anion Gap BUN Creatinine Estimated GFR Glucose Hemoglobin A1c Estim Average Glucose Calcium Total Bilirubin Urine Color YELLOW Urine Appearance MODERATELY TURBID Urine pH 5.0 (5.0-7.5) Ur Specific [place] 1.006 (1.002-1.030) Urine Protein NEGATIVE (NEGATIVE) Urine Ketones NEGATIVE (NEGATIVE) Urine Blood NEGATIVE (NEGATIVE) Urine Nitrate POSITIVE H (NEGATIVE) Urine Bilirubin NEGATIVE (NEGATIVE) Urine Urobilinogen NEGATIVE EU EU (0.2-1.0) Ur Leukocyte Esterase 3+ H (NEGATIVE) Urine RBC NONE SEEN /hpf /hpf (0-3) Urine WBC 50-182 /hpf H /hpf (0-3) Ur Epithelial Cells TRACE /lpf /lpf (NONE-1+) Urine Bacteria 4+ /hpf H /hpf (NONE SEEN) Hyaline Casts 5-15 /lpf /lpf (0-1) Urine Mucus TRACE /lpf /lpf (NONE-1+) Urine Glucose 1+ H (NEGATIVE) 05/02/17 05/02/17 05/02/17 10:40 10:40 10:40 WBC RBC Hgb Hct MCV MCH MCHC RDW Plt Count MPV Neut % (Auto) Lymph % (Auto) Dewitt % (Auto) Eos % (Auto) Baso % (Auto) Nucleat RBC Rel Count Absolute Neuts (auto) Absolute Lymphs (auto) Absolute Monos (auto) Absolute Eos (auto) Absolute Basos (auto) Absolute Nucleated RBC Immature Gran % Immature Gran # PT INR APTT VBG Lactic Acid Sodium 140 mEq/L mEq/L (135-145) Potassium 4.5 mEq/L mEq/L (3.5-5.2) Chloride 101 mEq/L mEq/L (97-110) Carbon Dioxide 23 mEq/l mEq/l (22-31) Anion Gap 16 mEq/L mEq/L (8-16) BUN 16 mg/dL mg/dL (7-23) Creatinine 0.7 mg/dL mg/dL (0.6-1.0) Estimated GFR > 60 Glucose 186 mg/dL H mg/dL (70-100) Hemoglobin A1c Pending Estim Average Glucose Pending Calcium 9.4 mg/dL mg/dL (8.5-10.4) Total Bilirubin 0.6 mg/dL mg/dL (0.1-1.4) Urine Color Urine Appearance Urine pH Ur Specific [place] Urine Protein Urine Ketones Urine Blood Urine Nitrate Urine Bilirubin Urine Urobilinogen Ur Leukocyte Esterase Urine RBC Urine WBC Ur Epithelial Cells Urine Bacteria Hyaline Casts Urine Mucus Urine Glucose 05/02/17 10:40 WBC 7.38 10^3/uL 10^3/uL (3.80-9.50) RBC 4.59 10^6/uL 10^6/uL (4.18-5.33) Hgb 13.3 g/dL g/dL (12.6-16.3) Hct 40.7 % % (38.0-47.0) MCV 88.7 fL fL (81.5-99.8) MCH 29.0 pg pg (27.9-34.1) MCHC 32.7 g/dL g/dL (32.4-36.7) RDW 14.8 % % (11.5-15.2) Plt Count 327 10^3/uL 10^3/uL (150-400) MPV 8.6 fL L fL (8.7-11.7) Neut % (Auto) 71.0 % % (39.3-74.2) Lymph % (Auto) 17.8 % % (15.0-45.0) Dewitt % (Auto) 7.6 % % (4.5-13.0) Eos % (Auto) 2.8 % % (0.6-7.6) Baso % (Auto) 0.4 % % (0.3-1.7) Nucleat RBC Rel Count 0.0 % % (0.0-0.2) Absolute Neuts (auto) 5.24 10^3/uL 10^3/uL (1.70-6.50) Absolute Lymphs (auto) 1.31 10^3/uL 10^3/uL (1.00-3.00) Absolute Monos (auto) 0.56 10^3/uL 10^3/uL (0.30-0.80) Absolute Eos (auto) 0.21 10^3/uL 10^3/uL (0.03-0.40) Absolute Basos (auto) 0.03 10^3/uL 10^3/uL (0.02-0.10) Absolute Nucleated RBC 0.00 10^3/uL 10^3/uL (0-0.01) Immature Gran % 0.4 % % (0.0-1.1) Immature Gran # 0.03 10^3/uL 10^3/uL (0.00-0.10) PT INR APTT VBG Lactic Acid Sodium Potassium Chloride Carbon Dioxide Anion Gap BUN Creatinine Estimated GFR Glucose Hemoglobin A1c Estim Average Glucose Calcium Total Bilirubin Urine Color Urine Appearance Urine pH Ur Specific [place] Urine Protein Urine Ketones Urine Blood Urine Nitrate Urine Bilirubin Urine Urobilinogen Ur Leukocyte Esterase Urine RBC Urine WBC Ur Epithelial Cells Urine Bacteria Hyaline Casts Urine Mucus Urine Glucose Medications Given: Sodium Chloride (Ns) 2,000 mls @ 333.3333 mls/hr 30 ml/kg infuse over 6 hr ( 2000 ml) IV EDNOW ONE PRN Reason: Protocol Stop: 05/02/17 19:16 Last Admin: 05/02/17 13:56 Dose: 2,000 mls Discontinued Medications Vancomycin/Sodium Chloride (Vancomycin 1 Gm (Premix)) 250 mls @ 250 mls/hr IV EDNOW ONE PRN Reason: Protocol Stop: 05/02/17 14:59 Last Admin: 05/02/17 14:44 Dose: 250 mls Vancomycin HCl 1 gm/ Sodium (Chloride) 250 mls @ 250 mls/hr IV ONCE ONE Stop: 05/02/17 15:29 Last Admin: 05/02/17 14:46 Dose: Not Given Sodium Chloride (Ns) 2,000 mls @ 4,000 mls/hr 30 ml/kg infuse over 30 min ( 2000 ml) IV EDNOW ONE PRN Reason: Protocol Stop: 05/02/17 13:29 Last Admin: 05/02/17 14:46 Dose: Not Given General Time Seen by Provider: 05/02/17 12:48 Initial Vital Signs: Initial Vital Signs Temperature (C) 36.8 C 05/02/17 11:05 Heart Rate 76 05/02/17 11:05 Respiratory Rate 16 05/02/17 11:05 Blood Pressure 144/94 H 05/02/17 11:05 O2 Sat (%) 98 05/02/17 11:05 O2 Delivery Mode Room Air Allergies/Adverse Reactions: Iodine and Iodide Containing Produc Allergy (Verified 05/02/17 11:05) IV CONTRAST Allergy (Uncoded 06/10/12 17:02) Other-Enter Comments plastic tape Allergy (Uncoded 11/15/16 10:50) Home Medications: Medication Instructions Recorded Brimonidine/Timolol [Combigan (*)] 1 drop EACHEYE BID 08/07/16 Brinzolamide [Azopt] 1 drop EACHEYE BID 08/07/16 Dicloxacillin Sodium [Dynapen 500 500 mg PO BID 08/07/16 MG (*)] Gabapentin [Neurontin 300 MG (*)] 900 mg PO TID 08/07/16 Montelukast Sodium [Singulair 10 10 mg PO DAILY@18 08/07/16 mg (*)] Simvastatin [Zocor] 40 mg PO HS 08/07/16 metFORMIN HCL [Metformin HCl] 1,000 mg PO BID 08/07/16 Multivitamins [Multivitamin (*)] 1 each PO DAILY 11/07/16 Aspirin EC [Aspirin EC 81 mg (*)] 81 mg PO HS 05/02/17 Ibuprofen [Motrin (*)] 200 - 400 mg PO Q6H PRN 05/02/17 Departure - Departure Disposition: [facility] Acute Clinical Impression: Cellulitis Qualifiers: Site of cellulitis: extremity Site of cellulitis of extremity: upper extremity Laterality: left Qualified Code(s): L03.114 - Cellulitis of left upper limb Sepsis Qualifiers: Sepsis type: sepsis due to unspecified organism Qualified Code(s): A41.9 - Sepsis, unspecified organism Condition: Fair Report Scribed for: Jinny Cao Report Scribed by: Breana Raymond Date of Report: 05/02/17 Time of Report: 15:25
[2017-05-02 13:48] LABS: INR 0.99 (0.83-1.16); PROTIME(PATIENT) 13.3 SEC (12.0-15.0)
[2017-05-02] MEDS ORDERED: VANCOMYCIN HCL/NORMAL SALINE 250 ML IV ONE (14:00)
[2017-05-02] MEDS ORDERED: VANCOMYCIN 1 GM in NS 250 ML IV ONE (14:30)
[2017-05-02] MEDS ORDERED: ONDANSETRON DISINTEGRATING 4 MG TAB PO PRN (15:05)
[2017-05-02] MEDS ORDERED: ONDANSETRON 4 MG/2 ML VIAL IVP PRN (15:05)
[2017-05-02] MEDS ORDERED: D50W 25 GM/50 ML SYR IVP PRN (15:30)
--- NOTE | 2017-05-02 15:51 | GHP ---
[f rep st] HISTORY AND PHYSICAL DATE OF ADMISSION: 05/02/2017 CHIEF COMPLAINT: Left arm infection. HISTORY OF PRESENT ILLNESS: This is a 71-year-old female with a history of chronic left arm lymphede ma from lymph node dissection in the setting of breast cancer who presents with new redness in the le ft arm. This started last night. It seemed to occur quite quickly, associated with a fever to 103. History from her is somewhat difficult, given her confusion. Unclear if she had any real urinary sy mptoms or not. Her actually provides most of the history. She has had multiple infections in this arm, 3 requiring hospitalization; two were here and one was i [facility]. She has been on dicloxacillin suppressive therapy for a number of years. This was instituted by Dr. Esparza. She says that her left arm is not terribly tender to palpation. PAST MEDICAL/SURGICAL HISTORY: 1. Breast cancer, status post radical mastectomy in 2001 with chronic lymphedema. 2. Diabetes mellitus, type 2, controlled. 3. Hyperlipidemia. 4. Nocturnal oxygen requirement. 5. Recent hernia repair for strangulated hernia. MEDICATIONS: Please see medication reconciliation. ALLERGIES: Iodine, IV contrast, plastic tape. SOCIAL HISTORY: She is accompanied by her . She occasionally has a beer. She does not smoke . FAMILY HISTORY: No breast cancer in the family. REVIEW OF SYSTEMS: A 10-point review of systems is conducted and is negative except per HPI. PHYSICAL EXAMINATION: VITAL SIGNS: Blood pressure 168/74, heart rate 68, respiration rate 18, satti ng 95% on room air, and temperature 36.6. GENERAL: The patient is a pleasant female who is resting comfortably and in no acute distress. HEENT: Normocephalic, atraumatic. CARDIOVASCULAR: Regular r ate and rhythm. No murmurs, rubs, or gallops. PULMONARY: Lungs clear to auscultation bilaterally. ABDOMEN: Soft, nontender, nondistended. SKIN: No rash. : No Sanchez. NEUROLOGIC: alert and perfecto ented x3. She is moving all extremities. PSYCHIATRIC: Normal food and affect. EXTREMITIES: Her l eft arm has significant erythema extending from the wrist up to the shoulder. I have marked the site . It is warm and mildly tender to palpation when I push on it. LABORATORY DATA: CBC is unremarkable. INR is normal. Lactate was 2.8, down to 2.2 after fluids. G lucose 186. Basic metabolic panel is normal. Urinalysis shows 4+ bacteria, 50-182 whites, leukocyte esterase and nitrite positive. DATA: 1. I discussed this with Dr. Cao. Will admit to med/surg. 2. I personally reviewed and interpreted her chest x-ray that shows normal-sized heart. There is no thing acute. 3. Upper extremity venous Doppler shows no DVT. IMPRESSION AND PLAN: 1. Cellulitis in the setting of chronic lymphedema: She had been on suppressive dicloxacillin. I t hink vancomycin is AN appropriate antibiotic. I have marked the line of erythema. I do not apprecia te any real fluctuance at this point on exam. Infectious Disease will be consulted. 2. Dementia: I am unclear exactly her baseline; however, her says that she is confused at h ome. She is at risk for hospital-acquired delirium because of this. 3. Pyuria: Unclear if she has any real urinary tract symptoms. I do not think I will target her ab normal UA at this point. 4. Diabetes mellitus, type 2: Will hold her metformin for now. Will follow her blood sugars and pl theo her on a low-dose sliding scale insulin. Will check an A1c given her soft tissue infection. 5. Nocturnal oxygen: Continue this. 6. Venous thromboembolism risk is moderate: I will give her Lovenox. 7. Code status: Full per her . /[id number]/MODL
[2017-05-02] MEDS: GABAPENTIN 300 MG CAP PO SCH ×2 (17:16→21:10)
[2017-05-02] MEDS: MONTELUKAST SODIUM 10 MG TAB PO SCH (18:58)
[2017-05-02] MEDS: INSULIN LISPRO 100 UNIT/ML SC SCH ×2 (19:25→21:34)
[2017-05-02] MEDS: ATORVASTATIN CALCIUM 20 MG TAB PO SCH (21:10)
[2017-05-02] MEDS: ASPIRIN EC 81 MG TAB PO SCH (21:10)
[2017-05-02] MEDS: Brinzolamide 1% 10 ml OPHT.BTL EACHEYE SCH (23:47)
[2017-05-02] MEDS: BRIMONIDINE/TIMOLOL 5 ML OPHT.BTL EACHEYE SCH (23:47)
[2017-05-03 06:33] LABS: PLATELET COUNT 312 10^3/uL (150-400)
[2017-05-03] MEDS ORDERED: cefTRIAXone 1 GM in STERILE WATER INJ 10 ML IV SCH ×2 (07:00→08:00)
[2017-05-03] MEDS: INSULIN LISPRO 100 UNIT/ML SC SCH ×3 (07:52→18:49)
--- NOTE | 2017-05-03 08:33 | PDMN ---
Medical Necessity Medical necessity: Pt meets IP criteria per MD; est los >2 mn for eval/tx of L arm cellulitis in the setting of chronic lymphedema & possible sepsis; admit for further monitoring/workup, ID consult, IV abx & IVFs; hx breast cancer s/p radical mastectomy w/chronic lymphedema, diabetes & dementia; per H&P & order
[2017-05-03] MEDS: ENOXAPARIN 40 MG/0.4 ML SYR SC SCH (08:44)
[2017-05-03] MEDS: GABAPENTIN 300 MG CAP PO SCH ×3 (08:44→21:32)
[2017-05-03] MEDS ORDERED: VANCOMYCIN 1.25 GM in NS 250 ML IV SCH (09:00)
--- NOTE | 2017-05-03 10:23 | PCMIDPN ---
Assessment/Plan: Assessment: Left arm cellulitis in the setting of chronic lymphedema secondary to axillary node dissection. Patient seems to be improved. She has developed a dermatitic rash over her left arm the slightly itchy. The generalized erythema is less. Would continue the ceftriaxone but discontinue the vancomycin and observe for continued improvement. Plan: 1. Discontinue vancomycin. 2. Continue ceftriaxone. 3. Follow clinical course. 05/03/17 15:54 05/03/17 15:54 Subjective: Patient is resting in the chair in her hospital room. She is stating that the arm is about the same as yesterday. No worse. Denies fevers or chills. No proximal spreading of erythema. Objective: Vancomycin # 2 Ceftriaxone # 1 Vital Signs Temp Pulse Resp BP Pulse Ox 36.7 C 64 18 151/97 H 94 05/03/17 07:53 05/03/17 07:53 05/03/17 07:53 05/03/17 07:53 05/03/17 07:53 Laboratory Results 05/03/17 06:05 05/03/17 06:05 - Physical Exam General Appearance: WD/WN, alert, no apparent distress, non-toxic Respiratory: lungs clear, normal breath sounds, No respiratory distress Cardiac/Chest: regular rate, rhythm, No tachycardia Extremities: non-tender, swelling, erythema (Mild left upper extremity), No normal inspection, No necrosis Skin: normal color, warm/dry, rash (Small lesion dermatitic rash over the left upper extremity. Mildly pruritic.) ICD10 Worksheet Patient Problems: Problems Problem Status Onset Cellulitis Acute Sepsis Acute Abdominal wall hernia Acute Bowel obstruction Acute
[2017-05-03] MEDS: Brinzolamide 1% 10 ml OPHT.BTL EACHEYE SCH ×2 (12:16→21:34)
[2017-05-03] MEDS: BRIMONIDINE/TIMOLOL 5 ML OPHT.BTL EACHEYE SCH ×2 (12:16→21:34)
--- NOTE | 2017-05-03 13:17 | HOSPPROG ---
Hospitalist Progress Note Assessment/Plan: LUE cellulitis in setting of lymphedema s/p lymph node dissection along with mastectomy for breast cancer - On Vanc, may be able to change to ceftriaxone monotherapy, await ID recs. ?UTI - UA markedly abnormal, cont Ceftriaxone while awaiting culture data DM type 2 - a1c 7.2, cont MTF, SSI Nocturnal O2 - ?sleep apnea, needs outpt f/u Breast cancer s/p LN dissection with chronic lymphedema as above Dementia Full code DVT PPLX - Lovenox Dispo - cont inpt Subjective: Pt is doing fine. She reports being ashamed of her swollen right arm. Notes it is still hot to touch. No fevers/chills. Objective: Vital Signs Temp Pulse Resp BP Pulse Ox 36.7 C 65 16 150/85 H 96 05/03/17 11:32 05/03/17 11:32 05/03/17 11:32 05/03/17 11:32 05/03/17 11:32 Laboratory Results 05/03/17 06:05 05/03/17 06:05 PT 13.3 SEC (12.0-15.0) 05/02/17 11:40 INR 0.99 (0.83-1.16) 05/02/17 11:40 - Physical Exam Constitutional: no apparent distress Eyes: PERRL Ears, Nose, Mouth, Throat: moist mucous membranes Cardiovascular: regular rate and rhythym Respiratory: no respiratory distress Gastrointestinal: normoactive bowel sounds, soft, non-tender abdomen Skin: warm Musculoskeletal: full muscle strength Psychiatric: poor insight ICD10 Worksheet Patient Problems: Problems Problem Status Onset Cellulitis Acute Sepsis Acute Abdominal wall hernia Acute Bowel obstruction Acute
--- NOTE | 2017-05-03 14:42 | ASMTCMCOM ---
CM Note CM Note Notes: Pt with hx of breast cancer and lymphedema admitted for LUE cellulitis. She is currently on IV vanco and ceftriaxone awaiting cultures. Gave face sheet to Alethea to run benefist in case of IV ABX at home. [facility] can cover [place] if pt will need home care. CM to follow. Date Signed: 05/03/2017 02:41 PM Electronically Signed By:Alysha Miller LCSW
[2017-05-03] MEDS: MONTELUKAST SODIUM 10 MG TAB PO SCH (18:48)
[2017-05-03] MEDS: ACETAMINOPHEN 325 MG TAB PO PRN (21:32)
[2017-05-03] MEDS: ATORVASTATIN CALCIUM 20 MG TAB PO SCH (21:32)
[2017-05-03] MEDS: ASPIRIN EC 81 MG TAB PO SCH (21:33)
[2017-05-04] MEDS: GABAPENTIN 300 MG CAP PO SCH ×3 (09:47→20:37)
[2017-05-04] MEDS: BRIMONIDINE/TIMOLOL 5 ML OPHT.BTL EACHEYE SCH ×2 (09:50→20:39)
[2017-05-04] MEDS: Brinzolamide 1% 10 ml OPHT.BTL EACHEYE SCH ×2 (09:50→20:39)
--- NOTE | 2017-05-04 10:46 | HOSPPROG ---
Hospitalist Progress Note Assessment/Plan: LUE cellulitis in setting of lymphedema s/p lymph node dissection along with mastectomy for breast cancer -D/C Vanc per ID, cont ceftriaxone ?UTI - UA markedly abnormal, pt did endorse dysuria. UCx with GNR, BCx's ngtd -cont Ceftriaxone -f/u culture data Dementia - this has not been classified, but I am suspicious for Lewy Body given her h/o tremor, hallucinations and cognitive fluctuations. -AVOID anti-psychotics and attempt to avoid all mind-altering meds utilizing non-pharmacologic approaches (reassurance, redirection, reminders, etc) -if pharmacologic intervention becomes absolutely necessary, would favor very low dose ativan over anti-psychotics. DM type 2 - a1c 7.2, cont MTF, SSI Nocturnal O2 - ?sleep apnea, needs outpt f/u Breast cancer s/p LN dissection with chronic lymphedema as above Full code DVT PPLX - Lovenox Dispo - cont inpt Subjective: Pt is intermittently tearful this am, still upset over multiple attempts at IV stick last night. Says her left arm is "disgusting". Less red. No fevers. Objective: Vital Signs Temp Pulse Resp BP Pulse Ox 36.8 C 96 19 168/109 H 93 05/04/17 07:53 05/04/17 07:53 05/04/17 07:53 05/04/17 07:53 05/04/17 07:53 Laboratory Results 05/03/17 06:05 05/03/17 06:05 05/03/17 05/04/17 05/05/17 05:59 05:59 05:59 Intake Total 550 Balance 550 PT 13.3 SEC (12.0-15.0) 05/02/17 11:40 INR 0.99 (0.83-1.16) 05/02/17 11:40 - Physical Exam Constitutional: no apparent distress Eyes: PERRL Ears, Nose, Mouth, Throat: moist mucous membranes Cardiovascular: regular rate and rhythym Respiratory: no respiratory distress Gastrointestinal: normoactive bowel sounds Skin: warm Musculoskeletal: other (LUE with markedly lymphedema changes, nearly resolved erythema, no warmth) Psychiatric: anxious, agitated, poor memory ICD10 Worksheet Patient Problems: Problems Problem Status Onset Cellulitis Acute Sepsis Acute Abdominal wall hernia Acute Bowel obstruction Acute
[2017-05-04] MEDS: ACETAMINOPHEN 325 MG TAB PO PRN (11:19)
--- NOTE | 2017-05-04 13:40 | ASMTCMCOM ---
CM Note CM Note Notes: Pt will DC on oral ABX per RN. [facility] and [facility] alerted to no needs. [facility] could take if there are any other needs but they would need to be notified. CM available if needed. Date Signed: 05/04/2017 01:40 PM Electronically Signed By:Alysha Miller LCSW
[2017-05-04] MEDS: INSULIN LISPRO 100 UNIT/ML SC SCH (15:27)
--- NOTE | 2017-05-04 17:21 | PCMIDPN ---
Assessment/Plan: Assessment/Plan: * Recurrent left upper extremity cellulitis in the setting of lymphedema: Clinically improved with antibiotic therapy. Cellulitis largely resolved. Anticipate transition to oral antibiotic therapy tomorrow. Plan continued suppressive antibiotics after acute therapy completed given prominent lymphedema. * Possible UTI: Urine culture with greater than 100,000 Klebsiella pneumoniae. Patient did describe having pain with urination. Await susceptibility profile. 05/04/17 17:18 Subjective: Patient notes resolution of urinary pain. Left arm remains swollen but redness has receded. Objective: Vital Signs Temp Pulse Resp BP Pulse Ox 37.1 C 71 17 132/74 H 94 05/04/17 15:29 05/04/17 15:29 05/04/17 15:29 05/04/17 15:29 05/04/17 15:29 Laboratory Results 05/03/17 06:05 05/03/17 06:05 05/03/17 05/04/17 05/05/17 05:59 05:59 05:59 Intake Total 550 Balance 550 Ceftriaxone # 2 Urine culture greater than 100,000 Klebsiella pneumoniae Blood cultures x2 no growth - Physical Exam General Appearance: alert, no apparent distress EENT: No scleral icterus, No thrush Extremities: inflammation (Left upper extremity with significant lymphedema; minimal erythema present over left lateral forearm; no erythema over upper arm; significant recession from previously demarcated lines) Lymphatic: other ( lymphedema left upper extremity without lymphangitis) ICD10 Worksheet Patient Problems: Problems Problem Status Onset Cellulitis Acute Sepsis Acute Abdominal wall hernia Acute Bowel obstruction Acute
[2017-05-04] MEDS: MONTELUKAST SODIUM 10 MG TAB PO SCH (17:38)
[2017-05-04] MEDS: metFORMIN HCL 500 MG TAB PO SCH (17:38)
[2017-05-04] MEDS: ENOXAPARIN 40 MG/0.4 ML SYR SC SCH (19:07)
[2017-05-04 20:17] VITALS: RESP 18
[2017-05-04] MEDS: ASPIRIN EC 81 MG TAB PO SCH (20:36)
[2017-05-04] MEDS: ATORVASTATIN CALCIUM 20 MG TAB PO SCH (20:36)
[2017-05-05] MEDS: ACETAMINOPHEN 325 MG TAB PO PRN (08:32)
[2017-05-05] MEDS: GABAPENTIN 300 MG CAP PO SCH (08:32)
[2017-05-05] MEDS: metFORMIN HCL 500 MG TAB PO SCH (08:32)
[2017-05-05] MEDS: Brinzolamide 1% 10 ml OPHT.BTL EACHEYE SCH (08:39)
[2017-05-05] MEDS: BRIMONIDINE/TIMOLOL 5 ML OPHT.BTL EACHEYE SCH (08:40)
[2017-05-05] MEDS: ENOXAPARIN 40 MG/0.4 ML SYR SC SCH (08:40)
--- NOTE | 2017-05-05 12:21 | PCMIDPN ---
Assessment/Plan: Assessment/Plan: * Recurrent left upper extremity cellulitis in the setting of lymphedema: Cellulitis resolved clinically. Will transition to Augmentin 875 mg twice daily for 7 days. Thereafter, resume dicloxacillin twice daily for suppressive therapy. Discussed with patient and that breakthrough will occur despite suppressive therapy. Continue lymphedema sleeve. Notify my office for recurrent symptoms. Okay for discharge from ID perspective. * Possible UTI: Urine culture with greater than 100,000 Klebsiella pneumoniae. Unclear if this represents asymptomatic bacteriuria versus true UTI. Isolate is susceptible to Augmentin so will be covered either way. 05/05/17 12:18 Subjective: Patient without specific complaints other than residual left upper extremity swelling. Objective: Vital Signs Temp Pulse Resp BP Pulse Ox 36.6 C 82 18 141/83 H 94 05/05/17 03:44 05/05/17 03:44 05/05/17 03:44 05/05/17 03:44 05/05/17 03:44 Laboratory Results 05/03/17 06:05 05/03/17 06:05 05/04/17 05/05/17 05/06/17 05:59 05:59 05:59 Intake Total 550 550 Balance 550 550 Urine culture greater than 100,000 Klebsiella pneumoniae Blood cultures x2 no growth - Physical Exam General Appearance: alert, no apparent distress EENT: No scleral icterus, No thrush Respiratory: lungs clear, No respiratory distress Cardiac/Chest: regular rate, rhythm Extremities: inflammation (Erythema almost entirely resolved except for small patch over distal forearm; nontender) Lymphatic: other (Left upper extremity lymphedema without lymphangitis) ICD10 Worksheet Patient Problems: Problems Problem Status Onset Cellulitis Acute Sepsis Acute Abdominal wall hernia Acute Bowel obstruction Acute
--- NOTE | 2017-05-05 12:41 | HOSPPROG ---
Hospitalist Progress Note Assessment/Plan: DISCHARGE DIAGNOSES: -acute cellulitis of left arm, 1 of numerous recurrences for this woman with chronic lymphedema -Klebsiella urinary tract infection, uncomplicated, sensitive organism -chronic lymphedema of left arm -breast cancer survivor CONSULTANTS: Dr. Faisal Esparza [facility] COURSE SUMMARY: This patient who has history of breast cancer and chronic left arm lymphedema and numerous episodes of cellulitis came in with redness heat and itching of her left arm. Her examination was consistent with cellulitis. There was no sepsis. There is no evidence of any deep tissue infection or any necrosis. The patient was treated with empiric antibiotics and recovered very nicely with at this time nearly complete resolution of her symptoms. She has some mild itching left. In addition the patient had some urinary symptoms including urinary hesitancy and discomfort. There was pyuria present and a culture grows a sensitive Klebsiella organism. She was diagnosed with presumed simple cystitis. At this point the patient is stable for discharge to home. She is to be treated with Augmentin 875 mg twice daily and will be followed up with Dr. Esparza at [facility]. She knows to warning symptoms to watch for and when to return for care if this episode is not improving. In terms of her chronic lymphedema it is at its baseline and she manages this with compression sleeve and massaged. She never has a point where she does not have significant lymphedema however. PENDING TEST RESULTS: None MEDICATION CHANGES: Augmentin 875 mg twice daily for 1 week Following that she will resume her chronic suppressive doxycycline FOLLOW-UP PLAN: With Dr. Esparza Greater than 35 minutes bedside and care coordination time today Objective: Vital Signs Temp Pulse Resp BP Pulse Ox 36.6 C 82 18 141/83 H 94 05/05/17 03:44 05/05/17 03:44 05/05/17 03:44 05/05/17 03:44 05/05/17 03:44 Laboratory Results 05/03/17 06:05 05/03/17 06:05 05/04/17 05/05/17 05/06/17 06:59 06:59 06:59 Intake Total 550 550 Balance 550 550 PT 13.3 SEC (12.0-15.0) 05/02/17 11:40 INR 0.99 (0.83-1.16) 05/02/17 11:40 ICD10 Worksheet Patient Problems: Problems Problem Status Onset Cellulitis Acute Sepsis Acute Abdominal wall hernia Acute Bowel obstruction Acute
--- NOTE | 2017-05-05 13:17 | PDDCSUM ---
Discharge Summary Discharge Summary: DISCHARGE DIAGNOSES: -acute cellulitis of left arm, 1 of numerous recurrences for this woman with chronic lymphedema -Klebsiella urinary tract infection, uncomplicated, sensitive organism -chronic lymphedema of left arm -breast cancer survivor CONSULTANTS: Dr. Faisal Esparza [facility] COURSE SUMMARY: This patient who has history of breast cancer and chronic left arm lymphedema and numerous episodes of cellulitis came in with redness heat and itching of her left arm. Her examination was consistent with cellulitis. There was no sepsis. There is no evidence of any deep tissue infection or any necrosis. The patient was treated with empiric antibiotics and recovered very nicely with at this time nearly complete resolution of her symptoms. She has some mild itching left. In addition the patient had some urinary symptoms including urinary hesitancy and discomfort. There was pyuria present and a culture grows a sensitive Klebsiella organism. She was diagnosed with presumed simple cystitis. At this point the patient is stable for discharge to home. She is to be treated with Augmentin 875 mg twice daily and will be followed up with Dr. Esparza at [facility]. She knows to warning symptoms to watch for and when to return for care if this episode is not improving. In terms of her chronic lymphedema it is at its baseline and she manages this with compression sleeve and massaged. She never has a point where she does not have significant lymphedema however. PENDING TEST RESULTS: None MEDICATION CHANGES: Augmentin 875 mg twice daily for 1 week Following that she will resume her chronic suppressive doxycycline FOLLOW-UP PLAN: With Dr. Esparza Greater than 35 minutes bedside and care coordination time today
[2017-05-05 13:18] VITALS: BP 121/64; PULSE 64; TEMP 98; O2SAT 95
--- NOTE | 2017-05-05 14:04 | ASDISCHSUM ---
Discharge Information Plan Status:Home with No Needs Medically Cleared to Leave:05/05/2017 Discharge Date:05/05/2017 02:03 PM CM D/C Disposition:Home, Routine, Self-Care ADT D/C Disposition:Home, Routine, Self-Care Projected Discharge Date:05/03/2017 11:00 AM Transportation at D/C:Family Discharge Delay Reason: Follow-Up Date:05/03/2017 11:00 AM Discharge Slot: Final Diagnosis: Placement Information Referral Type:*Home Health Care Services Referral ID:[id number] Provider Name: Address 1: Phone Number: Address 2: Fax Number: City: Selection Factors: State: Patient Contact Information Contact Name:CHIQUIS Relationship: Address:[address] City:[facility] Phone: State/Zip Code:[place] [address] Email: Financial Information Financial Class:Medicare Primary Plan Desc:MEDICARE INPATIENT Primary Plan Number:[id number] Secondary Plan Desc:[employer] [facility] Secondary Plan Number:[id number] Assessment Information LACE LACE Length of stay for Answers: 4-6 days current admission Acuity / Level of Answers: Yes Care: Did the patient have an inpatient admission? Comorbidities - select Answers: Dementia all that apply Diabetes (uncontrolled or controlled) Other Notes: breast cancer # of Emergency department Answers: 1-2 visits in the last 6 months Score: 13 Date Signed: 05/05/2017 02:03 PM Electronically Signed By:JOEY Alanis [facility] CM Progress Note CM Note CM Note Notes: Pt with hx of breast cancer and lymphedema admitted for LUE cellulitis. She is currently on IV vanco and ceftriaxone awaiting cultures. Gave face sheet to Alethea to run benefist in case of IV ABX at home. [facility] can cover [place] if pt will need home care. CM to follow. Date Signed: 05/03/2017 02:41 PM Electronically Signed By:Alysha Miller LCSW [facility] CM Progress Note CM Note CM Note Notes: Pt will DC on oral ABX per RN. [facility] and [facility] alerted to no needs. [facility] could take if there are any other needs but they would need to be notified. CM available if needed. Date Signed: 05/04/2017 01:40 PM Electronically Signed By:Alysha Miller LCSW Intervention Information
== END 2017-05-05 14:03 | disposition home or self-care (01) | DRG 603 ==
LOC: F1N 16:12
PROVIDERS: ADMIT Hospitalist; ATTEND Internal Medicine
DX: L03.114 Cellulitis of left upper limb (principal); N39.0 Urinary tract infection, site not specified; B96.1 Klebsiella pneumoniae [K. pneumoniae] as the cause of diseases classified elsewhere; I97.2 Postmastectomy lymphedema syndrome; E11.9 Type 2 diabetes mellitus without complications; E78.5 Hyperlipidemia, unspecified; F03.90 Unspecified dementia, unspecified severity, without behavioral disturbance, psychotic disturbance, mood disturbance, and anxiety; Z90.12 Acquired absence of left breast and nipple; Z85.3 Personal history of malignant neoplasm of breast
CPT/HCPCS: 96365; J0696; J1650; J1815; J3370